=== PATIENT | male | born 1935 | race Caucasian/White ===

== ENCOUNTER → 2017-09-17 11:40 | Outpatient (CLI) | payer MEDICARE, OTHER, SELFPAY ==
--- NOTE | 2017-09-17 11:49 | DI.ECHO.S_ITS ---
[facility]+ : : [address] : [address] : : : : [id number] : : : : Phone: [phone]---------+ Echocardiogram Report + + :Name: REGINO ALMANZAR Study Date: 09/17/2017 Height: 70 in : :[facility] Exam Location: [facility] Weight: 156 lb : : Gender: Male BSA: 1.9 m2 : :: 1935 Age: 82 yrs BP: 140/80 mmHg: :Reason For Study: Heart Failure : :Ordering Physician: Becky Pepe : :Javier Performed By: Marie Page : + + Interpretation Summary 1) Normal left ventricular thickness, size, and low normal systolic function (EF about 55%). 2) Mildly dilated right ventricle with normal systolic function. 3) Mild to moderate mitral regurgitation present. 4) Mild to moderate aortic regurgitation present, directed towards to the anterior leaflet of the mitral valve. 5) Mild atherosclerotic plaque(s) in the descending aorta. 6) Compared ot the Echo done 03/11/2016, LVEF has improved from 45-50% to about 55% on this study. Procedure: A two-dimensional transthoracic echocardiogram with color flow and Doppler was performed. The study quality was technically adequate. Comparison is made with the echocardiogram of 03/11/2016. The patient was in sinus bradycardia with heart rates between 44-52 bpm during the exam. Left Ventricle: The left ventricle is normal in size. There is normal left ventricular wall thickness. The left ventricular ejection fraction is normal. Left ventricular ejection fraction is estimated to be 55 +/- 5%. There are no focal wall motion abnormalities. Assessment of diastolic parameters indicates a relaxation abnormality of the left ventricle, consistent with normal filling pressures. Right Ventricle: The right ventricle is mildly dilated. The right ventricular systolic function is normal. Atria: The left atrium is severely dilated. The left atrium has significantly increased in size since the prior echo exam. The right atrium is mildly dilated. The right atrium has mildly increased in size since the prior echo exam. There is no Doppler evidence for an interatrial shunt. Mitral Valve: The mitral valve leaflets appear thickened, but open well. There is mild to moderate mitral regurgitation. Aortic Valve: The aortic valve is grossly normal. The aortic valve opens well. There is no aortic valve stenosis. There is mild to moderate aortic regurgitation. There is an eccentric jet of aortic insufficiency directed against the anterior mitral leaflet. Tricuspid Valve: The tricuspid valve is normal in structure and function. There is mild tricuspid regurgitation. The right ventricular systolic pressure is estimated at 23 mmHg assuming a right atrial pressure of 3 mm Hg. Pulmonic Valve: The pulmonic valve is not well visualized. There is trace pulmonic regurgitation. Great Vessels: The aortic root is normal size. The ascending aorta is at the upper limits of normal in size. The aortic arch could not be visualized. Mild atherosclerotic plaque(s) in the descending aorta. The pulmonary artery is not well visualized, but is probably normal size. The IVC is of normal diameter and collapses greater than 50% with a sniff. This suggests a low right atrial pressure of 3 mm Hg. Pericardium/ Pleura There is no pericardial effusion. There is no pleural effusion. MMode/2D Measurements & Calculations LVIDd: 5.5 cm LVOT diam: 2.5 cm LVIDs: 3.4 cm Ao root diam: 3.8 cm FS: 38.4 % asc Aorta Diam: 3.8 cm EPSS: 0.62 cm IVSd: 0.79 cm LVPWd: 0.72 cm LV fuentes. diameter/BSA (cm/m^2): 2.9 LV sys. diameter/BSA (cm/m^2): 1.8 LA A2 area: 30.9 cm2 RA long axis: 6.2 cm LA A4 area: 31.3 cm2 RA area: 22.1 cm2 LA length (vol): 6.2 cm RA vol: 67.2 ml LA vol: 132.4 ml RA : 35.8 ml/m2 LA vol index: 70.5 ml/m2 RVD1 (basal): 4.6 cm TAPSE: 2.1 cm Doppler Measurements & Calculations Ao V2 max: 122.4 cm/sec LVOT Max Brain: 80.2 cm/sec Ao V2 mean: 83.6 cm/sec LV V1 max P.6 mmHg Ao max P.0 mmHg LV V1 VTI: 17.0 cm Ao mean P.2 mmHg RENÉ(I,D): 3.0 cm2 Ao V2 VTI: 27.2 cm RENÉ(V,D): 3.2 cm2 sev ratio: 0.63 RENÉ indexed to BSA (cm^2/m^2): 1.6 AI P1/2t: 601.8 msec AI dec slope: 235.0 cm/sec2 MV E max brain: 38.5 cm/sec TR max brain: 223.9 cm/sec MV A max brain: 50.3 cm/sec TR max P.0 mmHg MV E/A: 0.76 PA V2 max: 45.1 cm/sec Med Peak E' Brain: 3.6 cm/sec PA V2 mean: 34.4 cm/sec E/E' med: 10.7 PA mean P.51 mmHg Lat Peak E' Brain: 3.9 cm/sec PA pr(Accel): 29.1 mmHg E/E' lat: 10.0 E/e' average: 10.4 MV dec time: 0.24 sec MV P1/2t: 72.8 msec MV P1/2t max brain: 39.0 cm/sec MVA(P1/2t): 3.0 cm2 Reading Physician:03:02 PM
== END ==
PROVIDERS: Family Provider Internal Medicine; PCP Internal Medicine; Visit Provider Internal Medicine Cardiovascular Disease
DX: I50.20 Unspecified systolic (congestive) heart failure (principal)
CPT/HCPCS: 93306

== ENCOUNTER → 2018-09-16 09:24 | Outpatient (CLI) | payer MEDICARE, OTHER, SELFPAY ==
[2018-09-16 10:14] LABS: Add Manual Diff / Slide Review NO; Basophils Absolute Auto 0 /uL (0-100); Basophils Percent Auto 0.7 % (0-2); Eosinophils Absolute Auto 100 /uL (0-450); Eosinophils Percent Auto 1.9 % (2-4); Hematocrit 39.7 % (41-53); Hemoglobin 13.6 g/dL (13.5-17.5); Lymphocytes Absolute Auto 800 /uL (1100-4500); Lymphocytes Percent Auto 25.1 % (25-40); Mean Corpuscular HGB Conc 34.1 % (30-36); Mean Corpuscular Hemoglobin 32.5 PG (26-34); Mean Corpuscular Volume 95.2 fL (80-100); Monocytes Absolute Auto 400 /uL (0-900); Monocytes Percent Auto 11.8 % (3-14); Neutrophils Absolute Auto 2000 /uL (1500-7000); Neutrophils Percent Auto 60.5 % (50-75); Platelet Count 147 X10^3/uL (150-400); Red Blood Cell Count 4.17 X10^6/uL (4.5-5.9); Red Cell Distribution Width 12.5 % (11.6-14.8); White Blood Cell Count 3.3 X10^3/uL (4.5-11.0)
[2018-09-16 10:36] LABS: BUN Creatinine Ratio 11.8 (6-22); Blood Urea Nitrogen 13 mg/dL (9-20); Calcium 8.9 mg/dL (8.4-10.2); Carbon Dioxide 28 mmol/L (22-32); Chloride 100 mmol/L (98-107); Estimated Glomerular Filt Rate > 60.0 mL/min (>60); Glucose 77 mg/dL (80-110); HEMOLYSIS < 15 (0-50); Potassium 4.4 mmol/L (3.4-5.1); Sodium 136 mmol/L (137-145)
== END ==
PROVIDERS: Family Provider Internal Medicine; PCP Internal Medicine; Visit Provider Internal Medicine Cardiovascular Disease
DX: I10 Essential (primary) hypertension (principal)
CPT/HCPCS: 36415; 80048; 85025

== ENCOUNTER → 2019-11-04 13:37 | Outpatient (CLI) | payer MEDICARE, OTHER, SELFPAY ==
--- NOTE | 2019-11-04 13:49 | DI.ECHO.S_ITS ---
Echocardiogram Report + + :Name: REGINO ALMANZAR Study Date: 11/04/2019 Height: 70 in : :[facility] Weight: 164 lb : : Gender: Male BSA: 1.9 m2 : :: 1935 Age: 84 yrs BP: 165/60 mmHg: :Reason For Study: Mitral insufficiency : :Ordering Physician: Timothy Pepe : :Javier Performed By: Suzanne Bates : :Referring: TIMOTHY HERRERA : + + Interpretation Summary 1) Normal left ventricular size and normal systolic function (EF 55-60%). 2) The right ventricle is normal in size and function. 3) Mild to moderate mitral regurgitation present. 4) Mild to moderate aortic regurgitation present, directed towards to the anterior leaflet of the mitral valve. 5) Mild atherosclerotic plaque(s) in the descending aorta. 6) Hypertension present during the study (BP 165/60mmHg). 7) Compared ot the Echo done 09/17/2017, hypertension is present on this study. Procedure: A two-dimensional transthoracic echocardiogram with color flow and Doppler was performed. The study quality was technically adequate. Comparison is made with the echocardiogram of 09/17/2017. The patient was in sinus bradycardia with heart rates between 45-55 bpm during the exam. Left Ventricle: The left ventricle is normal in size. There is borderline concentric left ventricular hypertrophy. The ejection fraction is estimated to be 55-60%. Right Ventricle: The right ventricle is normal in size and function. Atria: The left atrium is moderately dilated. Right atrial size is normal. The interatrial septum is intact with no evidence for an atrial septal defect. Mitral Valve: The mitral valve leaflets appear mildly thickened, but open well. There is mild mitral annular calcification. There is mild to moderate mitral regurgitation. Aortic Valve: The aortic valve is trileaflet. The aortic valve opens well. There is no aortic valve stenosis. There is mild to moderate aortic regurgitation. Tricuspid Valve: The tricuspid valve is normal in structure and function. The right ventricular systolic pressure is estimated to be at least 22 mmHg based on an estimated right atrial pressure of 3 mm Hg. There is mild tricuspid regurgitation. Pulmonic Valve: The pulmonic valve is not well visualized. There is mild to moderate pulmonic regurgitation. Great Vessels: The aortic root is normal size. The dimensions of the ascending aorta are normal. The IVC is of normal diameter and collapses greater than 50% with a sniff. This suggests a low right atrial pressure of 3 mm Hg. Pericardium/ Pleura There is no pericardial effusion. There is no pleural effusion. MMode/2D Measurements & Calculations LVIDd: 5.8 cm LVOT diam: 2.3 cm LVIDs: 4.0 cm Ao root diam: 3.8 cm FS: 30.2 % Ao Arch Diam (Prox Trans): 3.4 cm EPSS: 1.0 cm IVSd: 1.2 cm LVPWd: 0.83 cm LV fuentes. diameter/BSA (cm/m^2): 3.0 LV sys. diameter/BSA (cm/m^2): 2.1 LA A2 area: 25.4 cm2 RA long axis: 5.7 cm LA A4 area: 24.1 cm2 RA area: 17.6 cm2 LA length (vol): 6.0 cm RA vol: 45.9 ml LA vol: 87.2 ml RA : 23.9 ml/m2 LA vol index: 45.5 ml/m2 IVC diam: 1.2 cm RVD1 (basal): 4.0 cm TAPSE: 1.9 cm Doppler Measurements & Calculations Ao V2 max: 129.7 cm/sec LVOT Max Brain: 84.0 cm/sec Ao V2 mean: 82.4 cm/sec LV V1 max P.8 mmHg Ao max P.7 mmHg LV V1 VTI: 18.6 cm Ao mean P.2 mmHg RENÉ(I,D): 2.6 cm2 Ao V2 VTI: 30.1 cm RENÉ(V,D): 2.7 cm2 sev ratio: 0.62 RENÉ indexed to BSA (cm^2/m^2): 1.4 AI P1/2t: 660.5 msec AI dec slope: 228.4 cm/sec2 MV E max brain: 52.8 cm/sec TR max brain: 219.4 cm/sec MV A max brain: 85.7 cm/sec TR max P.3 mmHg MV E/A: 0.62 PA V2 max: 58.1 cm/sec Med Peak E' Brain: 2.8 cm/sec PA V2 mean: 37.0 cm/sec E/E' med: 19.1 PA mean P.67 mmHg Lat Peak E' Brain: 3.1 cm/sec PA pr(Accel): 25.9 mmHg E/E' lat: 16.9 E/e' average: 18.0 MV dec time: 0.22 sec MR ERO: 0.20 cm2 MR PISA: 2.7 cm2 SV(LVOT): 78.5 ml MR flow rate: 114.5 cm3/sec MR PISA radius: 0.65 cm Reading Physician:05:51 PM
== END ==
PROVIDERS: Family Provider Internal Medicine; PCP Internal Medicine; Referring Provider Internal Medicine Cardiovascular Disease; Visit Provider Internal Medicine Cardiovascular Disease
DX: I08.3 Combined rheumatic disorders of mitral, aortic and tricuspid valves (principal); I50.22 Chronic systolic (congestive) heart failure; I70.0 Atherosclerosis of aorta
CPT/HCPCS: 93306

== ENCOUNTER → 2019-11-11 14:00 | Outpatient (CLI) | payer MEDICARE, OTHER, SELFPAY ==
[2019-11-11 14:52] LABS: Add Manual Diff / Slide Review NO; Basophils Absolute Auto 0 /uL (0-100); Basophils Percent Auto 0.6 % (0-2); Eosinophils Absolute Auto 100 /uL (0-450); Eosinophils Percent Auto 1.8 % (2-4); Hematocrit 39.4 % (41-53); Hemoglobin 13.6 g/dL (13.5-17.5); Lymphocytes Absolute Auto 1400 /uL (1100-4500); Lymphocytes Percent Auto 33.8 % (25-40); Mean Corpuscular HGB Conc 34.7 % (30-36); Mean Corpuscular Hemoglobin 32.7 PG (26-34); Mean Corpuscular Volume 94.4 fL (80-100); Monocytes Absolute Auto 500 /uL (0-900); Monocytes Percent Auto 12.3 % (3-14); Neutrophils Absolute Auto 2100 /uL (1500-7000); Neutrophils Percent Auto 51.5 % (50-75); Platelet Count 136 X10^3/uL (150-400); Red Blood Cell Count 4.17 X10^6/uL (4.5-5.9); Red Cell Distribution Width 12.5 % (11.6-14.8); White Blood Cell Count 4.1 X10^3/uL (4.5-11.0)
[2019-11-11 15:14] LABS: BUN Creatinine Ratio 12.5 (6-22); Blood Urea Nitrogen 14 mg/dL (9-20); Calcium 9.5 mg/dL (8.4-10.2); Carbon Dioxide 26 mmol/L (22-32); Chloride 102 mmol/L (98-107); Cholesterol 171 mg/dL (140-199); Estimated Glomerular Filt Rate > 60.0 mL/min (>60); Glucose 99 mg/dL (80-110); HDL Cholesterol 33 mg/dL (40-60); HEMOLYSIS < 15 (0-50); LDL Cholesterol Calculated 70 mg/dL (<100); Potassium 4.6 mmol/L (3.4-5.1); Sodium 135 mmol/L (137-145); Triglycerides 341 mg/dL (35-150)
== END ==
PROVIDERS: Family Provider Internal Medicine; PCP Internal Medicine; Referring Provider Internal Medicine Cardiovascular Disease; Visit Provider Internal Medicine Cardiovascular Disease
DX: I10 Essential (primary) hypertension (principal); E78.5 Hyperlipidemia, unspecified
CPT/HCPCS: 36415; 80048; 80061; 85025

== ENCOUNTER → 2020-11-22 11:37 | Outpatient (CLI) | payer MEDICARE, OTHER, SELFPAY ==
[2020-11-22 13:02] LABS: Add Manual Diff / Slide Review NO; Basophils Absolute Auto 0 /uL (0-100); Basophils Percent Auto 0.8 % (0-2); Eosinophils Absolute Auto 100 /uL (0-450); Eosinophils Percent Auto 2.5 % (2-4); Hematocrit 40.1 % (41-53); Hemoglobin 13.6 g/dL (13.5-17.5); Lymphocytes Absolute Auto 1100 /uL (1100-4500); Lymphocytes Percent Auto 29.2 % (25-40); Mean Corpuscular Hemoglobin 32.5 PG (26-34); Mean Corpuscular Volume 95.7 fL (80-100); Monocytes Absolute Auto 400 /uL (0-900); Monocytes Percent Auto 11.9 % (3-14); Neutrophils Absolute Auto 2000 /uL (1500-7000); Neutrophils Percent Auto 55.6 % (50-75); Platelet Count 141 X10^3/uL (150-400); Red Blood Cell Count 4.19 X10^6/uL (4.5-5.9); Red Cell Distribution Width 12.7 % (11.6-14.8); White Blood Cell Count 3.7 X10^3/uL (4.5-11.0)
[2020-11-22 13:46] LABS: Blood Urea Nitrogen 12 mg/dL (9-20); Calcium 8.9 mg/dL (8.4-10.2); Carbon Dioxide 23 mmol/L (22-32); Chloride 101 mmol/L (98-107); Cholesterol 154 mg/dL (140-199); Estimated Glomerular Filt Rate > 60.0 mL/min (>60); Glucose 89 mg/dL (80-110); HDL Cholesterol 35 mg/dL (40-60); HEMOLYSIS < 15 (0-50); LDL Cholesterol Calculated 71 mg/dL (<100); Potassium 4.7 mmol/L (3.4-5.1); Sodium 133 mmol/L (137-145); Triglycerides 238 mg/dL (35-150)
== END ==
PROVIDERS: Family Provider Internal Medicine; PCP Internal Medicine; Referring Provider Internal Medicine Cardiovascular Disease; Visit Provider Internal Medicine Cardiovascular Disease
DX: I10 Essential (primary) hypertension (principal)
CPT/HCPCS: 36415; 80048; 80061; 85025

== ENCOUNTER 2021-11-27 11:48 | Emergency (ER) | payer OTHER, SELFPAY ==
[2021-11-27] VITALS (8 sets, daily range): BP systolic 164–201; BP diastolic 70–83; PULSE 54–65; RESP 14; TEMP 36.4; O2SAT 96–99
--- NOTE | 2021-11-27 17:23 | DI.CT.S_ITS ---
PROCEDURE: CT CERVIAL SPINE W CON INDICATIONS: Fall TECHNIQUE: After the administration of intravenous Isovue contrast, 3 mm thick sections acquired through the levels of interest. Sagittal and coronal reformats were then constructed. For radiation dose reduction, the following was used: automated exposure control. COMPARISON: None. FINDINGS: Image quality: Excellent. Bones: No visualized fracture or dislocation. No suspicious osseous lesions. Multilevel degenerative changes are present with notable disc space narrowing from C4-5 through C6-7. Soft tissues: No soft tissue edema. IMPRESSION: Degenerative changes without visualized fracture. Dictated by: Mercedes Zhu M.D. on 11/27/2021 at 17:53 Approved by: Mercedes Zhu M.D. on 11/27/2021 at 17:54
--- NOTE | 2021-11-27 17:23 | DI.CT.S_ITS ---
PROCEDURE: CT HEAD/BRAIN WO CON INDICATIONS: Fall TECHNIQUE: Noncontrast 5 mm thick angled axial sections acquired from the foramen magnum to the vertex, with coronal and sagittal reformats. For radiation dose reduction, the following was used: automated exposure control, adjustment of mA and/or kV according to patient size. COMPARISON: [facility], CT, HEAD WITHOUT CONTRAST, 08/09/2017, 14:11. FINDINGS: Image quality: Excellent. CSF spaces: Basal cisterns are patent. No extra-axial fluid collections. Ventricles are normal in size and shape. Brain: No midline shift. No intracranial masses or hemorrhage. Lopez-white matter interface is normal. Moderate atrophy and multifocal white matter chronic ischemic change noted. 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 Sinuses: Visualized sinuses and mastoids are clear. IMPRESSION: No intracranial hemorrhage or mass effect Atrophy and moderate white matter chronic ischemic change. 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 on 11/27/2021 at 16:52
--- NOTE | 2021-11-27 18:39 | ED.HEATRA ---
HPI - Head Injury General Chief complaint: Trauma Stated complaint: fell this morning has gash in forehead Time Seen by Provider: 11/27/21 16:38 Source: patient and family Mode of arrival: Ambulatory History of Present Illness HPI Narrative: 86-year-old male with past medical history dementia brought in by his status post a fall and laceration sustained to the right brow. Patient's provided the history, stating that patient was in the shower, had stepped out while still wet, slipped and sustained a mechanical fall, injuring his right brow. Per patient's there was no loss of consciousness, patient is not on blood thinners. Patient denies fever, chills, chest pain, shortness of breath, dizziness, lightheadedness, syncope. Patient endorses some pain on the right brow where he sustained a laceration. Related Data Home Medications Medication Instructions Recorded Confirmed atorvastatin 10 mg tablet (Lipitor) 10 mg PO QDAY ##0 05/07/16 carvedilol 12.5 mg tablet (Coreg) 12.5 mg PO BID ##0 05/07/16 furosemide 40 mg tablet 40 mg PO QDAY PRN ##0 05/07/16 losartan 25 mg tablet 25 mg PO QDAY ##0 05/07/16 spironolactone 25 mg tablet 25 mg PO QDAY ##0 05/07/16 (Aldactone) Allergies Allergy/AdvReac Type Severity Reaction Status Date / Time aspirin [ASPIRIN] Allergy Intermediate RASH Verified 11/27/21 12:12 Patient History Social History Smoking Status: Former smoker Smoking Status: Former smoker alcohol intake frequency: 0-2 drinks per day Substance Use Type: does not use Exam Initial Vital Signs Initial Vital Signs: Vital Signs Temperature 97.5 F L 11/27/21 12:07 Pulse Rate 55 L 11/27/21 12:07 Respiratory Rate 14 11/27/21 12:07 Blood Pressure 164/70 H 11/27/21 12:07 Pulse Oximetry 99 11/27/21 12:07 Oxygen Delivery Method 11/27/21 12:07 Procedures Laceration Repair Laceration 1: Site: face Side (If applicable): right Size (cm): 3 Description: linear Local Anesthetic: lidocaine 1% and with epi Amount of anesthesia used (mL): 2 Pre-repair: wound explored, irrigated extensively and deep structures intact Skin layer closed with: nylon Skin layer suture size: 5-0 Number of sutures: 6 Technique: simple, interrupted Course Orders Ordered: ED Orders 11/27/21 17:23 CT cervical spine w con Stat CT head/brain wo con Stat Vital Signs Vital signs: Vital Signs - 8 hr 11/27/21 12:07 11/27/21 16:36 11/27/21 16:37 Temperature 97.5 F L Pulse Rate 55 L 54 L Respiratory Rate 14 Blood Pressure 164/70 H 191/80 H Pulse Oximetry 99 97 Oxygen Delivery Method Room Air 11/27/21 17:00 11/27/21 17:00 11/27/21 17:30 Temperature Pulse Rate 56 L Respiratory Rate Blood Pressure 175/74 H 201/79 H Pulse Oximetry 96 Oxygen Delivery Method 11/27/21 17:30 Temperature Pulse Rate 65 Respiratory Rate Blood Pressure Pulse Oximetry 97 Oxygen Delivery Method MDM - Head Injury Imaging Data CT scan - head: Radiologist's Impression: PROCEDURE:? CT HEAD/BRAIN WO CON ? INDICATIONS:? Fall ? TECHNIQUE:? Noncontrast 5 mm thick angled axial sections acquired from the foramen magnum to the vertex, with coronal and sagittal reformats.? For radiation dose reduction, the following was used:? automated exposure control, adjustment of mA and/or kV according to patient size.? ? COMPARISON:? [facility], CT, HEAD WITHOUT CONTRAST, 08/09/2017, 14:11. ? FINDINGS:? Image quality:? Excellent.? ? CSF spaces:? Basal cisterns are patent.? No extra-axial fluid collections.? Ventricles are normal in size and shape.? ? Brain:? No midline shift.? No intracranial masses or hemorrhage.? Lopez-white matter interface is normal.? Moderate atrophy and multifocal white matter chronic ischemic change noted.? 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 Skull and face:? Calvarium and visualized facial bones are intact, without suspicious lesions.? ? Sinuses:? Visualized sinuses and mastoids are clear.? ? IMPRESSION:? ? No intracranial hemorrhage or mass effect Atrophy and moderate white matter chronic ischemic change. 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 ? ? Approved by: Moy Sanders M.D. on 11/27/2021 at 16:52? CT - cervical spine: Radiologist's Impression: PROCEDURE:? CT CERVIAL SPINE W CON ? INDICATIONS:? Fall ? TECHNIQUE:? After the administration of intravenous Isovue contrast, 3 mm thick sections acquired through the levels of interest.? Sagittal and coronal reformats were then constructed.? For radiation dose reduction, the following was used:? automated exposure control.? ? COMPARISON:? None. ? FINDINGS:? Image quality:? Excellent.? ? Bones:? No visualized fracture or dislocation.? No suspicious osseous lesions.? Multilevel degenerative changes are present with notable disc space narrowing from C4-5 through C6-7. ? Soft tissues:? No soft tissue edema. ? IMPRESSION:? Degenerative changes without visualized fracture. ? ? Dictated by: Mercedes Zhu M.D. on 11/27/2021 at 17:53 ? ? Approved by: Mercedes Zhu M.D. on 11/27/2021 at 17:54 ? MDM Narrative Medical decision making narrative: 86-year-old male with past medical history dementia brought in by his status post a fall and laceration sustained to the right brow. Concern for laceration versus skull fracture versus intracranial bleed versus spinal fractures. Will obtain CT head, CT C-spine. CT C spine, CT head without acute findings. Patient's laceration was repaired with sutures. Sutures will need to be removed in 5-7 days. Signs of infection, wound care, ED return precautions discussed with patient and patient's . They verbalized understanding. Discharge Plan Departure Patient Disposition: Home Clinical Impression: Laceration Instructions: DI for Laceration Repair Activity Restrictions/Additional Instructions: You were evaluated in the ED today for a laceration. Your head CT and CT of the C-spine did not show any fractures, dislocations or brain bleeds. Your laceration was sutured. Stitches need to come out in 5-7 days. You may go to your PCP or in Urgent Care Center or return to the ED for suture removal. Please watch for signs of infection including redness, warmth, swelling, discharge. Please return to the ED if you see any signs of infection. Prescriptions: No Action carvedilol [Coreg] 12.5 MG tablet 12.5 mg PO BID Qty: 0 furosemide 40 MG tablet 40 mg PO QDAY PRNQty: 0 atorvastatin [Lipitor] 10 MG tablet 10 mg PO QDAY Qty: 0 spironolactone [Aldactone] 25 MG tablet 25 mg PO QDAY Qty: 0 losartan 25 MG tablet 25 mg PO QDAY Qty: 0 Referrals: Daniella Kay MD [Primary Care Provider] - Visit Report Forms: Patient Portal/API
== END 2021-11-27 18:51 | disposition home or self-care (01) ==
PROVIDERS: Emergency Provider Student in an Organized Health Care Education/Training Program; Family Provider Internal Medicine; PCP Internal Medicine
DX: S01.111A Laceration without foreign body of right eyelid and periocular area, initial encounter (principal); W01.119A Fall on same level from slipping, tripping and stumbling with subsequent striking against unspecified sharp object, initial encounter; F03.90 Unspecified dementia, unspecified severity, without behavioral disturbance, psychotic disturbance, mood disturbance, and anxiety
CPT/HCPCS: 12013; 70450; 72126; 99281; 99284

== ENCOUNTER → 2022-01-08 11:33 | Outpatient (CLI) | payer OTHER, SELFPAY ==
[2022-01-08 13:26] LABS: Add Manual Diff / Slide Review NO; Basophils Absolute Auto 0 /uL (0-100); Basophils Percent Auto 0.8 % (0-2); Eosinophils Absolute Auto 100 /uL (0-450); Eosinophils Percent Auto 1.4 % (2-4); Hematocrit 39.5 % (41-53); Hemoglobin 13.5 g/dL (13.5-17.5); Lymphocytes Absolute Auto 1000 /uL (1100-4500); Lymphocytes Percent Auto 24.9 % (25-40); Mean Corpuscular HGB Conc 34.3 % (30-36); Mean Corpuscular Hemoglobin 32.6 PG (26-34); Mean Corpuscular Volume 95.1 fL (80-100); Monocytes Absolute Auto 500 /uL (0-900); Monocytes Percent Auto 12.1 % (3-14); Neutrophils Absolute Auto 2300 /uL (1500-7000); Neutrophils Percent Auto 60.8 % (50-75); Platelet Count 145 X10^3/uL (150-400); Red Blood Cell Count 4.15 X10^6/uL (4.5-5.9); Red Cell Distribution Width 13.1 % (11.6-14.8); White Blood Cell Count 3.9 X10^3/uL (4.5-11.0)
[2022-01-08 14:03] LABS: BUN Creatinine Ratio 9.9 (6-22); Blood Urea Nitrogen 9 mg/dL (9-20); Calcium 8.3 mg/dL (8.4-10.2); Carbon Dioxide 28 mmol/L (22-32); Chloride 99 mmol/L (98-107); Cholesterol 143 mg/dL (140-199); Estimated Glomerular Filt Rate > 60 mL/min (>60); Glucose 86 mg/dL (80-110); HDL Cholesterol 36 mg/dL (40-60); HEMOLYSIS < 15 (0-50); LDL Cholesterol Calculated 81 mg/dL (<100); Potassium 4.5 mmol/L (3.4-5.1); Sodium 131 mmol/L (137-145); Triglycerides 132 mg/dL (35-150)
== END ==
PROVIDERS: Family Provider Internal Medicine; PCP Internal Medicine; Referring Provider Internal Medicine Cardiovascular Disease; Visit Provider Internal Medicine Cardiovascular Disease
DX: I10 Essential (primary) hypertension (principal); E78.5 Hyperlipidemia, unspecified
CPT/HCPCS: 36415; 80048; 80061; 85025

== ENCOUNTER → 2022-02-11 12:09 | Outpatient (CLI) | payer OTHER, SELFPAY ==
--- NOTE | 2022-02-11 12:11 | DI.ECHO.S_ITS ---
[facility]---------[facility] +---------+ : : [address] : : : : [id number] : : : : Phone: [phone]---------+ Echocardiogram Report + + :Name: REGINO ALMANZAR Study Date: 02/11/2022 Height: 70 in : :[facility] ReadingLocation: Weight: 163 lb : : Gender: Male BSA: 1.9 m2 : :: 1935 Age: 86 yrs BP: 162/75 mmHg: :Reason For Study: Aortic valve regurgitation : :Ordering Physician: LONI, : :TIMOTHY Performed By: Jose C Luna : :Referring: TIMOTHY HERRERA : + + Interpretation Summary 1) Normal left ventricular size and normal systolic function (EF 55-60%). 2) The right ventricle is normal in size and function. 3) Mild to moderate aortic regurgitation present, directed towards to the anterior leaflet of the mitral valve. 4) Compared ot the Echo done 11/03/2021, mitral regurgitation has decreased from mild-moderate to mild on this study. Procedure: A two-dimensional transthoracic echocardiogram with color flow and Doppler was performed. The study quality was technically adequate. Comparison is made with the echocardiogram of 11/04/2019. Left Ventricle: The left ventricle is normal in size and wall thickness. Proximal septal thickening is noted. Left ventricular systolic function is normal. The ejection fraction is estimated to be 55-60%. There are no focal wall motion abnormalities. Diastolic parameters suggest a relaxation abnormality of the left ventricle, consistent with probable normal filling pressures. Right Ventricle: The right ventricle is normal in size and function. Atria: Both atria are severely dilated. Right atrial size is normal. The interatrial septum grossly appears intact with no obvious evidence for an atrial septal defect. Mitral Valve: The mitral valve leaflets appear mildly thickened, but open well. There is mild mitral regurgitation. Aortic Valve: There is mild aortic valve sclerosis. There is mild to moderate aortic regurgitation. There is an eccentric jet of aortic insufficiency directed against the anterior mitral leaflet. Tricuspid Valve: The tricuspid valve is normal in structure and function. There is mild tricuspid regurgitation. The right ventricular systolic pressure is estimated to be at least 30 mmHg based on an estimated right atrial pressure of 3 mm Hg. Pulmonic Valve: The pulmonic valve is not well seen, but is grossly normal. There is mild pulmonic regurgitation. Great Vessels: The aortic root is normal size. The dimensions of the ascending aorta are normal. The IVC is of normal diameter and collapses greater than 50% with a sniff. This suggests a low right atrial pressure of 3 mm Hg. Pericardium/ Pleura There is no pericardial effusion. There is no pleural effusion. MMode/2D Measurements & Calculations LVIDd: 5.3 cm LVOT diam: 2.2 cm LVIDs: 3.6 cm Ao root diam: 3.5 cm FS: 32.1 % asc Aorta Diam: 3.3 cm IVSd: 1.1 cm LVPWd: 1.0 cm LV fuentes. diameter/BSA (cm/m^2): 2.8 LV sys. diameter/BSA (cm/m^2): 1.9 LA dimension: 4.2 cm RA long axis: 5.4 cm LA A2 area: 28.7 cm2 LA A4 area: 24.6 cm2 LA length (vol): 6.3 cm LA vol: 95.3 ml LA vol index: 49.8 ml/m2 TAPSE_phl: 2.3 cm Doppler Measurements & Calculations Ao V2 max: 138.0 cm/sec LVOT Max Brain: 84.9 cm/sec Ao V2 mean: 87.6 cm/sec LV V1 max P.9 mmHg Ao max P.0 mmHg LV V1 VTI: 18.7 cm Ao mean P.0 mmHg RENÉ(I,D): 2.5 cm2 Ao V2 VTI: 28.1 cm RENÉ(V,D): 2.3 cm2 sev ratio: 0.67 RENÉ indexed to BSA (cm^2/m^2): 1.3 AI P1/2t: 506.4 msec AI dec slope: 295.0 cm/sec2 MV E max brain: 45.4 cm/sec TR max brain: 261.0 cm/sec MV A max brain: 75.8 cm/sec TR max P.2 mmHg MV E/A: 0.60 Med Peak E' Brain: 3.4 cm/sec E/E' med: 13.4 Lat Peak E' Brain: 7.7 cm/sec E/E' lat: 5.9 E/e' average: 9.6 MV dec time: 0.32 sec SV(LVOT): 71.1 ml AV P1/2t-pr_phl: 508.0 msec AV VR_phl: 0.62 RENÉ(VTI)/BSA_phl: 1.3 MV P1/2t-pr_phl: 94.0 msec Reading Physician:01:58 PM
== END ==
PROVIDERS: Family Provider Internal Medicine; PCP Internal Medicine; Referring Provider Internal Medicine Cardiovascular Disease; Visit Provider Internal Medicine Cardiovascular Disease
DX: I08.3 Combined rheumatic disorders of mitral, aortic and tricuspid valves (principal)
CPT/HCPCS: 93306

== ENCOUNTER → 2023-09-02 10:00 | Outpatient (CLI) | payer OTHER, SELFPAY ==
[2023-09-02 10:57] LABS: Add Manual Diff / Slide Review NO; Basophils Absolute Auto 0 /uL (0-100); Basophils Percent Auto 1.1 % (0-2); Eosinophils Absolute Auto 600 /uL (0-450); Eosinophils Percent Auto 13.7 % (2-4); Hematocrit 40.3 % (41-53); Hemoglobin 13.8 g/dL (13.5-17.5); Lymphocytes Absolute Auto 900 /uL (1100-4500); Lymphocytes Percent Auto 19.4 % (25-40); Mean Corpuscular HGB Conc 34.2 % (30-36); Mean Corpuscular Hemoglobin 32.3 PG (26-34); Mean Corpuscular Volume 94.5 fL (80-100); Monocytes Absolute Auto 400 /uL (0-900); Monocytes Percent Auto 9.3 % (3-14); Neutrophils Absolute Auto 2500 /uL (1500-7000); Neutrophils Percent Auto 56.5 % (50-75); Platelet Count 66 X10^3/uL (150-400); Red Blood Cell Count 4.26 X10^6/uL (4.5-5.9); Red Cell Distribution Width 13.2 % (11.6-14.8); White Blood Cell Count 4.5 X10^3/uL (4.5-11.0)
[2023-09-02 11:17] LABS: BUN Creatinine Ratio 13.3 (6-22); Blood Urea Nitrogen 11 mg/dL (9-20); Calcium 8.9 mg/dL (8.4-10.2); Carbon Dioxide 26 mmol/L (22-32); Chloride 99 mmol/L (98-107); Cholesterol 136 mg/dL (140-199); Estimated Glomerular Filt Rate > 60 mL/min (>60); Glucose 105 mg/dL (80-110); HDL Cholesterol 46 mg/dL (40-60); HEMOLYSIS < 15 (0-50); LDL Cholesterol Calculated 71 mg/dL (<100); Potassium 4.5 mmol/L (3.4-5.1); Sodium 130 mmol/L (137-145); Triglycerides 94 mg/dL (35-150)
== END ==
PROVIDERS: Family Provider Internal Medicine; PCP Internal Medicine; Referring Provider Internal Medicine Cardiovascular Disease; Visit Provider Internal Medicine Cardiovascular Disease
DX: E78.5 Hyperlipidemia, unspecified (principal); I10 Essential (primary) hypertension
CPT/HCPCS: 36415; 80048; 80061; 85025

== ENCOUNTER → 2023-09-10 11:15 | Outpatient (CLI) | payer OTHER, SELFPAY ==
[2023-09-10 11:36] LABS: Hematocrit 37.1 % (41-53); Hemoglobin 12.6 g/dL (13.5-17.5); Mean Corpuscular HGB Conc 33.9 % (30-36); Mean Corpuscular Hemoglobin 32.6 PG (26-34); Mean Corpuscular Volume 96.3 fL (80-100); Red Blood Cell Count 3.86 X10^6/uL (4.5-5.9); Red Cell Distribution Width 13.3 % (11.6-14.8); White Blood Cell Count 5.6 X10^3/uL (4.5-11.0)
[2023-09-10 12:51] LABS: Platelet Count 116 X10^3/uL (150-400)
== END ==
PROVIDERS: Family Provider Internal Medicine; PCP Internal Medicine; Referring Provider Internal Medicine Cardiovascular Disease; Visit Provider Internal Medicine Cardiovascular Disease
DX: D69.6 Thrombocytopenia, unspecified (principal)
CPT/HCPCS: 36415; 85027

== ENCOUNTER → 2023-09-22 10:32 | Outpatient (CLI) | payer OTHER, SELFPAY ==
[2023-09-22 11:13] LABS: Add Manual Diff / Slide Review NO; Basophils Absolute Auto 0 /uL (0-100); Basophils Percent Auto 0.9 % (0-2); Eosinophils Absolute Auto 200 /uL (0-450); Eosinophils Percent Auto 4.2 % (2-4); Hematocrit 39.9 % (41-53); Hemoglobin 13.6 g/dL (13.5-17.5); Lymphocytes Absolute Auto 900 /uL (1100-4500); Lymphocytes Percent Auto 23.9 % (25-40); Mean Corpuscular HGB Conc 34.1 % (30-36); Mean Corpuscular Hemoglobin 32.3 PG (26-34); Mean Corpuscular Volume 94.6 fL (80-100); Monocytes Absolute Auto 400 /uL (0-900); Monocytes Percent Auto 11.2 % (3-14); Neutrophils Absolute Auto 2300 /uL (1500-7000); Neutrophils Percent Auto 59.8 % (50-75); Platelet Count 70 X10^3/uL (150-400); Red Blood Cell Count 4.22 X10^6/uL (4.5-5.9); Red Cell Distribution Width 13.3 % (11.6-14.8); White Blood Cell Count 3.9 X10^3/uL (4.5-11.0)
[2023-09-22 11:37] LABS: Alanine Aminotransferase 15 IU/L (<50); Albumin 4.2 g/dL (3.5-5.0); Albumin Globulin Ratio 1.4 (1.0-2.8); Alkaline Phosphatase 77 U/L (38-126); Aspartate Aminotransferase 24 IU/L (17-59); BUN Creatinine Ratio 12.1 (6-22); Bilirubin Total 1.2 mg/dL (0.2-1.3); Blood Urea Nitrogen 11 mg/dL (9-20); Calcium 8.1 mg/dL (8.4-10.2); Carbon Dioxide 24 mmol/L (22-32); Chloride 98 mmol/L (98-107); Cholesterol 131 mg/dL (140-199); Estimated Glomerular Filt Rate > 60 mL/min (>60); Globulin 2.9 g/dL (1.7-4.1); Glucose 103 mg/dL (80-110); HDL Cholesterol 43 mg/dL (40-60); HEMOLYSIS 67 (0-50); LDL Cholesterol Calculated 70 mg/dL (<100); Potassium 5.2 mmol/L (3.4-5.1); Sodium 127 mmol/L (137-145); Total Protein 7.1 g/dL (6.3-8.2); Triglycerides 91 mg/dL (35-150)
== END ==
LOC: LAB 10:34
PROVIDERS: Family Provider Internal Medicine; PCP Internal Medicine; Referring Provider Internal Medicine Cardiovascular Disease; Visit Provider Internal Medicine Cardiovascular Disease
DX: E78.5 Hyperlipidemia, unspecified (principal); D69.6 Thrombocytopenia, unspecified; I10 Essential (primary) hypertension
CPT/HCPCS: 36415; 80053; 80061; 85025